=== PATIENT | male | born 1975 | race Caucasian/White ===

== ENCOUNTER 2016-09-24 07:08 | Observation (INO) | payer BC ==
[~2016-09-24] VITALS: Ht 177.8 cm; Wt 100.0 kg
[2016-09-24] VITALS (7 sets, daily range): BP systolic 109–126; BP diastolic 59–74; PULSE 62–70; RESP 17–19; TEMP 98.4; O2SAT 93–97
[2016-09-24] MEDS ORDERED: LITHIUM (07:18)
--- NOTE | 2016-09-24 07:41 | PD ---
HPI Chief Complaint: Chest Pain Time Seen by Provider: 07:34 Travel History International Travel<30 days: No Contact w/Intl Traveler<30days: No Traveled to known affect area: No History of Present Illness HPI 40yo M with PMH of cocaine abuse, bipolar disorder presents to the ED with c/o chest pain for a few hours. Pain is midsternal, pressure like, nonradiating and intermittent. +Some sob. Denies any diaphoresis, n/v, fall, abdominal pain , focal weakness or numbness. Pt states he has been smoking crack for 3 days and had been drinking alcohol last night. He had similar chest pain 6 months ago and was evaluated in ED in [place]. 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 +Cig smoking. PFSH Social History Tobacco Use: Yes Allergies-Medications (Allergen,Severity, Reaction): Coded Allergies: No Known Allergies (Unverified , 09/24/16) Reported Meds & Prescriptions Reported Meds & Active Scripts Active Review of Systems Except as stated in HPI: all other systems reviewed are Neg Physical Exam Narrative GENERAL: 40yo M not in distress. SKIN: Warm and dry. HEAD: Atraumatic. Normocephalic. EYES: Pupils equal and round at 4mm bilaterally. No scleral icterus. No injection or drainage. NECK: Trachea midline. No JVD. CARDIOVASCULAR: Regular rate and rhythm. No murmur appreciated. RESPIRATORY: No accessory muscle use. Clear to auscultation. Breath sounds equal bilaterally. GASTROINTESTINAL: Abdomen soft, non-tender, nondistended. No rebound tenderness or guarding. MUSCULOSKELETAL: No obvious deformities. No clubbing. No cyanosis. No edema. NEUROLOGICAL: Mildly intoxicated. Sleepy but easily arousable and answers questions and follows commands. No obvious cranial nerve deficits. Motor grossly within normal limits. Normal speech. Data Data Last Documented VS Vital Signs Date Time Temp Pulse Resp B/P Pulse Ox O2 Delivery O2 Flow Rate FiO2 09/24/16 09:00 110/62 109/61 09/24/16 08:00 66 17 Room Air 09/24/16 07:38 94 09/24/16 07:11 98.4 Orders Electrocardiogram (09/24/16 07:35) Basic Metabolic Panel (Bmp) (09/24/16 07:35) Ckmb (Isoenzyme) Profile (09/24/16 07:35) Complete Blood Count With Diff (09/24/16 07:35) Magnesium (Mg) (09/24/16 07:35) Prothrombin Time / Inr (Pt) (09/24/16 07:35) Act Partial Throm Time (Ptt) (09/24/16 07:35) Troponin I (09/24/16 07:35) Chest, Single Ap (09/24/16 07:35) Ecg Monitoring (09/24/16 07:35) Bilateral Bp Monitoring (09/24/16 07:35) Iv Access Insert/Monitor (09/24/16 07:35) Oximetry (09/24/16 07:35) Oxygen Administration (09/24/16 07:35) Sodium Chloride 0.9% Flush (Ns Flush) (09/24/16 07:45) Alcohol (Ethanol) (09/24/16 07:35) Aspirin (Aspirin) (09/24/16 07:45) CKMB (09/24/16 07:40) CKMB% (09/24/16 07:40) Admit Order (Ed Use Only) (09/24/16 08:58) Labs Laboratory Tests Test 09/24/16 07:40 White Blood Count 11.5 TH/MM3 Red Blood Count 4.54 MIL/MM3 Hemoglobin 13.6 GM/DL Hematocrit 39.2 % Mean Corpuscular Volume 86.3 FL Mean Corpuscular Hemoglobin 30.1 PG Mean Corpuscular Hemoglobin 34.8 % Concent Red Cell Distribution Width 13.8 % Platelet Count 219 TH/MM3 Mean Platelet Volume 8.0 FL Neutrophils (%) (Auto) 79.1 % Lymphocytes (%) (Auto) 11.4 % Monocytes (%) (Auto) 8.6 % Eosinophils (%) (Auto) 0.6 % Basophils (%) (Auto) 0.3 % Neutrophils # (Auto) 9.1 TH/MM3 Lymphocytes # (Auto) 1.3 TH/MM3 Monocytes # (Auto) 1.0 TH/MM3 Eosinophils # (Auto) 0.1 TH/MM3 Basophils # (Auto) 0.0 TH/MM3 CBC Comment DIFF FINAL Differential Comment Prothrombin Time 11.2 SEC Prothromb Time International 1.0 RATIO Ratio Activated Partial 25.1 SEC Thromboplast Time Sodium Level 141 MEQ/L Potassium Level 3.6 MEQ/L Chloride Level 107 MEQ/L Carbon Dioxide Level 26.3 MEQ/L Anion Gap 8 MEQ/L Blood Urea Nitrogen 16 MG/DL Creatinine 1.03 MG/DL Estimat Glomerular Filtration 80 ML/MIN Rate Random Glucose 105 MG/DL Calcium Level 8.8 MG/DL Magnesium Level 2.3 MG/DL Total Creatine Kinase 192 U/L Creatine Kinase MB 0.8 NG/ML Troponin I LESS THAN 0.02 NG/ML Ethyl Alcohol Level 3 MG/DL [facility] Medical Decision Making Medical Screen Exam Complete: Yes Emergency Medical Condition: Yes Interpretation(s) EKG: NSR 71bpm. Normal axis. No ST segment depression or elevation. TWI III. Differential Diagnosis Cocaine related chest pain vs. alcohol intoxication vs. GERD vs. musculoskeletal pain Narrative Course 40yo M with intermittent chest pain that is concerning for cocaine related cardiac ischemia. Pt states chest pain is intermittent, lasting minutes and associated with some sob. Labs reviewed, troponin negative. Negative alcohol. CXR negative. Pt is a cig smoker and has not been here before. Aspirin 325mg PO. Pt reevaluated at bedside and chest pain has improved. However, given the intermittent nature of the chest pain and associated cocaine use, will admit pt for serial EKG and cardiac enzyme in chest pain center. Diagnosis Primary Impression: Chest pain Qualified Code: R07.9 - Chest pain, unspecified type Admitting Information Admitting Physician Requests: Kylah Lambert DO Sep 24, 2016 07:41
[2016-09-24] MEDS ORDERED: ASPIRIN 325 MG TAB PO ONE (07:45)
[2016-09-24] MEDS ORDERED: SODIUM CHLORIDE 0.9% FLUSH 5 ML FLUSH IVF PRN (07:45)
--- NOTE | 2016-09-24 08:05 | RADRPT ---
EXAM DATE/TIME: 09/24/2016 07:59 [facility] COMPARISON: No previous studies available for comparison. INDICATIONS : Patient states he has been on a drug binge and drinking. His chest pain started yesterday night. MEDICAL HISTORY : None. SURGICAL HISTORY : None. ENCOUNTER: Initial ACUITY: 1 day PAIN SCORE: 2/10 LOCATION: chest FINDINGS: A single view of the chest demonstrates the lungs to be symmetrically aerated without evidence of mas s, infiltrate or effusion. The cardiomediastinal contours are unremarkable. Osseous structures are intact. CONCLUSION: No acute disease. Prashant Aiken MD on September 24, 2016 at 8:04 Board Certified Radiologist. This report was verified electronically.
[2016-09-24 08:07] LABS: AUTOMATED NEUTROPHIL # 9.1 TH/MM3 (1.8-7.7); BASOPHIL % 0.3 % (0.0-2.0); EOSINOPHIL # 0.1 TH/MM3 (0-0.4); EOSINOPHIL % 0.6 % (0.0-4.0); HEMATOCRIT 39.2 % (39.0-51.0); HEMO FLAGS DIFF FINAL; LYMPH % 11.4 % (9.0-44.0); LYMPHOCYTE # 1.3 TH/MM3 (1.0-4.8); MEAN CELL VOLUME 86.3 FL (80.0-100.0); MEAN CORPUSCULAR HEMOGLOBIN 30.1 PG (27.0-34.0); MEAN CORPUSCULAR HGB CONC 34.8 % (32.0-36.0); MONO % 8.6 % (0.0-8.0); NEUT % 79.1 % (16.0-70.0); PLATELET COUNT 219 TH/MM3 (150-450); RED BLOOD COUNT 4.54 MIL/MM3 (4.50-5.90); RED CELL DISTRIBUTION WIDTH 13.8 % (11.6-17.2); WHITE BLOOD COUNT 11.5 TH/MM3 (4.0-11.0)
[2016-09-24 08:19] LABS: APTT (PATIENT) 25.1 SEC (24.3-30.1); PROTHROMBIN TIME - PATIENT 11.2 SEC (9.8-11.6)
[2016-09-24 08:26] LABS: ANION GAP 8 MEQ/L (5-15); BICARBONATE 26.3 MEQ/L (21.0-32.0); BLOOD UREA NITROGEN 16 MG/DL (7-18); CHLORIDE 107 MEQ/L (98-107); GLOMERULAR FILTRATION RATE 80 ML/MIN (>89); MAGNESIUM 2.3 MG/DL (1.5-2.5); POTASSIUM 3.6 MEQ/L (3.5-5.1); SODIUM (NA) 141 MEQ/L (136-145)
[2016-09-24 08:28] LABS: CREATINE KINASE 192 U/L (39-308)
[2016-09-24 08:41] LABS: CKMB 0.8 NG/ML (0.5-3.6)
[2016-09-24] MEDS ORDERED: NITROGLYCERIN 0.4 MG SL 25 TABS/BTL SL PRN (09:45)
[2016-09-24] MEDS ORDERED: ACETAMINOPHEN 500 MG CPLT PO PRN (09:45)
[2016-09-24] MEDS ORDERED: ONDANSETRON HCL 4 MG/2 ML VIAL IV PRN (09:45)
--- NOTE | 2016-09-24 12:45 | HHI.HP ---
HPI Primary Care Physician No Primary Care Physician Chief Complaint Chest pain History of Present Illness 40-year-old male presents to the emergency room for further evaluation of chest pressure. Onset 1 AM. Located substernally with radiations to right anterior chest with right hand numbness. Severity 8 out of 10. Pain described as a "pressure." Pressure came on gradually and gradually went away. Duration one hour. Currently his chest pain-free. Associated symptoms included nausea, diaphoresis, and short of breath. No vomiting. No known precipitating or relieving factors. Laying flat seem to make pressure better. Breathing did not make pain better or worse. Endorses 2 days ago he smoked crack cocaine. States he did not smoke crack last night before having chest pain episode. Review of Systems General: No fatigue,weakness, fever, chills, recent illness, or change in appetite HEENT: No GARCIA, no vision changes, no nasal congestion or drainage, no dysphasia CV: As stated above. No current chest pain or pressure. No palpitations, intermittent leg pain, dizziness RESP: No SOB, cough, wheeze, hemoptysis, or recent URI GI: No nausea, vomiting, bowel changes, diarrhea. : No dysuria, urgency, frequency EXT: No lower leg edema, no paraesthesias MS: No discomfort or change in ROM NEURO: No change in memory, dizziness, difficulty with balance, LOC, motor/ sensory deficits PSYCH: No anxiety, depression, suicidal ideation SKIN: No rashes, no concerning lesions Past Family Social History Allergies: Coded Allergies: No Known Allergies (Unverified , 09/24/16) Past Medical History Bipolar, hypertension Past Surgical History None Reported Medications Currently not taking medications for bipolar or hypertension. States he has been out of medications for at least 2 months. Does not remember name of BP medication or dose of lithium. Active Ordered Medications Current Medications Medications (Trade) Dose Ordered Sig/Ren Route Start Time Stop Time Status Last Admin (Tylenol) 500 mg Q4H PRN PO 09/24/16 09:45 (Zofran Inj) 4 mg Q6H PRN IV 09/24/16 09:45 (Nitrostat Sl) 0.4 mg Q5M PRN SL 09/24/16 09:45 (Aspirin) 325 mg DAILY PO 09/25/16 09:00 Family History Noncontributory for early onset cardiovascular disease Social History Smokes 1 pack/cigarettes daily for 20+ years. Occasionally will drink alcohol every 2 weeks. Endorses smoking crack 2 days ago. Smokes crack "every 6 months or so not on a regular basis." . 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 Past cardiac testing No past cardiac testing. Physical Exam Vital Signs Vital Signs Date Time Temp Pulse Resp B/P Pulse Ox O2 Delivery O2 Flow Rate FiO2 09/24/16 11:40 21 09/24/16 07:38 94 Room Air 09/24/16 07:38 94 Room Air 09/24/16 07:38 94 Room Air 09/24/16 07:11 98.4 67 19 126/66 93 Physical Exam GENERAL: Alert, WN, WD, NAD, male HEAD: NC, AT EYES: Sclera clear, conjunctiva without injection, pupils equal and round NECK: Supple, no masses, trachea midline CV: RRR, without murmur, rub, gallop, no JVD, S1-S2 no S3-S4. RESP: Clear lungs throughout bilateral, no crackles, wheeze, rhonchi, symmetrical chest rise, nonlabored, able to speak in full sentences ABD: Soft, NT, ND, no masses EXT: Pulses +24, no dependent edema MS: Normal tone 4 extremities, nontender, no obvious deformities, full range of motion NEURO: CN II through CN XII grossly intact, motor strength 5/5, gait WNL PSYCH: A+O 3, flat affect, appropriate speech, appropriate mood and affect, insight and judgment SKIN: Normal turgor, normal texture, no lesions, no rashes, even hair distribution Laboratory Laboratory Tests Test 09/24/16 07:40 White Blood Count 11.5 Red Blood Count 4.54 Hemoglobin 13.6 Hematocrit 39.2 Mean Corpuscular Volume 86.3 Mean Corpuscular Hemoglobin 30.1 Mean Corpuscular Hemoglobin 34.8 Concent Red Cell Distribution Width 13.8 Platelet Count 219 Mean Platelet Volume 8.0 Neutrophils (%) (Auto) 79.1 Lymphocytes (%) (Auto) 11.4 Monocytes (%) (Auto) 8.6 Eosinophils (%) (Auto) 0.6 Basophils (%) (Auto) 0.3 Neutrophils # (Auto) 9.1 Lymphocytes # (Auto) 1.3 Monocytes # (Auto) 1.0 Eosinophils # (Auto) 0.1 Basophils # (Auto) 0.0 CBC Comment DIFF FINAL Differential Comment Prothrombin Time 11.2 Prothromb Time International 1.0 Ratio Activated Partial 25.1 Thromboplast Time Sodium Level 141 Potassium Level 3.6 Chloride Level 107 Carbon Dioxide Level 26.3 Anion Gap 8 Blood Urea Nitrogen 16 Creatinine 1.03 Estimat Glomerular Filtration 80 Rate Random Glucose 105 Calcium Level 8.8 Magnesium Level 2.3 Total Creatine Kinase 192 Creatine Kinase MB 0.8 Troponin I LESS THAN 0.02 Ethyl Alcohol Level 3 Result Diagram: 09/24/1640 09/24/16 0740 Imaging Last Impressions Chest X-Ray 09/24/1635 Signed Impressions: Service Date/Time: Saturday, September 24, 2016 07:59 - CONCLUSION: No acute disease. Prashant Aiken MD Course EKG First EKG normal sinus rhythm, normal axis, no ST or T-segment changes Assessment and Plan Assessment and Plan #1 Chest painadmitted to chest pain center. Will be seen and evaluated by Dr. Ludwig Araujo. We'll complete 3 sets of EKGs and cardiac enzymes. Discussed the likelihood with patient next step would be to complete an exercise stress test. He is agreeable to this plan of care. #2 Cocaine use-discussed and counseled on risks involving cocaine/crack use. Informed of risk of [place] and/or with use of cocaine. He encouraged him to quit using illegal drugs. #3 Tobacco usediscussed and counseled patient on risk of tobacco use. Encouraged him to quit smoking. #4 Hypertensionwe'll continue to monitor. Encouraged him to find primary care provider to monitor and prescribed BP medications. #5 Bipolarstrongly encouraged him to find primary care provider and/or psychiatrist to manage. Discussed importance of being compliant with medication and counseling.. Discussed Condition With 14:50-Patient seen and examined by Dr. Araujo. Patient expressed he never had chest discomfort, but has been making "bad decisions and doing too many drugs." States, "I just feel really bad and I now have no place to go." He has plans to join a drug rehab. Will provide him with a meal and fluids before discharge. Also, have spoken with case management for possible bus ticket. No further cardiac testing required. 17:15-'s called and is concern about him coming home, states she fears for her life. instructed to call the local authorities to discuss her concerns. Patient denies suicidal or homicidal ideations. Charu Villasenor Sep 24, 2016 12:45
--- NOTE | 2016-09-24 15:02 | HHI.DCPOC ---
Discharge Care Plan Diagnosis: (1) Atypical chest pain (2) Tobacco abuse (3) Substance abuse Goals to Promote Your Health * To prevent worsening of your condition and complications * To maintain your health at the optimal level Directions to Meet Your Goals Take your medications as prescribed Follow your dietary instruction Follow activity as directed Keep your appointments as scheduled Take your immunizations and boosters as scheduled If your symptoms worsen call your PCP, if no PCP go to Urgent Care Center or Emergency Room Smoking is Dangerous to Your Health. Avoid second hand smoke Call the 24-hour hour crisis hotline for domestic abuse at Charu Villasenor Sep 24, 2016 15:02
[2016-09-24 15:08] LABS: CREATINE KINASE 167 U/L (39-308)
[2016-09-24 15:23] LABS: CKMB LESS THAN 0.5 NG/ML (0.5-3.6)
[2016-09-24] MEDS ORDERED: SODIUM CHLORIDE 0.9% FLUSH 5 ML FLUSH IVF SCH (21:00)
[2016-09-25] MEDS ORDERED: ASPIRIN 325 MG TAB PO SCH (09:00)
--- NOTE | 2016-09-25 12:32 | EKG ---
Date Performed: 09/24/2016 Time Performed: 07:27:28 PTAGE: 40 years EKG: Sinus rhythm NORMAL ECG NO PREVIOUS TRACING DOCTOR: Mirza Buenrostro Interpretating Date/Time 09/25/2016 12:31:08
--- NOTE | 2016-09-25 12:33 | EKG ---
Date Performed: 09/24/2016 Time Performed: 14:15:17 PTAGE: 40 years EKG: Sinus rhythm WITH SINUS ARRHYTHMIA NORMAL ECG PREVIOUS TRACING : 09/24/2016 07.27 DOCTOR: Mirza Buenrostro Interpretating Date/Time 09/25/2016 12:32:43
== END 2016-09-24 18:45 | disposition home or self-care (01) ==
LOC: NEPC 07:08 → NEDA 09:00 → NEPFCDU 15:17
PROVIDERS: ADMIT Internal Medicine Cardiovascular Disease; ATTEND Internal Medicine Cardiovascular Disease
DX: R07.9 Chest pain, unspecified (principal); F14.90 Cocaine use, unspecified, uncomplicated; F31.9 Bipolar disorder, unspecified; R06.02 Shortness of breath; I10 Essential (primary) hypertension; Z72.89 Other problems related to lifestyle; Z71.51 Drug abuse counseling and surveillance of drug abuser; Z71.6 Tobacco abuse counseling
CPT/HCPCS: 71010; 80048; 80320; 82550; 82552; 83735; 84484; 85025; 85610; 85730; 93005; 99285; G0378